=== PATIENT | female | born 1955 | race Caucasian/White ===

== ENCOUNTER 2020-08-08 13:45 | Outpatient (RCR) | payer MEDICARE, OTHER, SELFPAY | END 2020-08-10 23:59 | LOC: DC 13:45 | PROVIDERS: PCP Family Medicine; Visit Provider Family Medicine | DX: Z71.3 Dietary counseling and surveillance (principal); E11.9 Type 2 diabetes mellitus without complications | CPT/HCPCS: G0108 ==

== ENCOUNTER 2020-09-09 13:00 | Outpatient (RCR) | payer MEDICARE, OTHER, SELFPAY | END 2020-09-09 23:59 | LOC: DC 13:00 | PROVIDERS: PCP Family Medicine; Visit Provider Family Medicine | DX: Z71.3 Dietary counseling and surveillance (principal); E11.9 Type 2 diabetes mellitus without complications | CPT/HCPCS: 97802; G0108 ==

== ENCOUNTER 2020-10-24 13:30 | Outpatient (RCR) | payer MEDICARE, OTHER, SELFPAY | END 2020-11-10 23:59 | LOC: DC 13:30 | PROVIDERS: PCP Family Medicine; Visit Provider Family Medicine | DX: Z71.3 Dietary counseling and surveillance (principal); E11.9 Type 2 diabetes mellitus without complications | CPT/HCPCS: 97803; G0109 ==

== ENCOUNTER 2020-11-20 13:30 | Outpatient (RCR) | payer MEDICARE, OTHER, SELFPAY | END 2020-11-20 23:59 | disposition home or self-care (01) | LOC: DC 13:30 | PROVIDERS: PCP Family Medicine; Visit Provider Family Medicine | DX: Z71.3 Dietary counseling and surveillance (principal); E11.9 Type 2 diabetes mellitus without complications | CPT/HCPCS: 97803; G0109 ==

== ENCOUNTER 2020-12-19 11:00 | Outpatient (RCR) | payer MEDICARE, OTHER, SELFPAY ==
[2020-12-19] MEDS: COVID-19 VACC, MRNA(PFIZER)/PF 30 MCG/0.3 ML SYRINGE IM (12:37)
[2021-01-09] MEDS: COVID-19 VACC, MRNA(PFIZER)/PF 30 MCG/0.3 ML SYRINGE IM (12:34)
== END 2021-03-18 23:59 ==
LOC: IMMUN 11:00
PROVIDERS: PCP Family Medicine; Referring Provider Family Medicine; Visit Provider Family Medicine
DX: Z23 Encounter for immunization (principal)
CPT/HCPCS: 0001A; 0002A; 91300